=== PATIENT | male | born 1945 | race Caucasian/White ===

== ENCOUNTER → 2016-11-13 | Outpatient (CLI) | payer MEDICARE, OTHER ==
[~2016-11-13] MED LIST: ASPIRIN LO-DOSE81 MG PO; ASPIRIN325 MG PO; CPAP INH; PRINIVIL OR ZES10 MG PO; PROTONIX40 MG PO; RYTHMOL150 MG PO; ZOCOR20 MG PO
== END | disposition disaster alternative care site (69) ==
LOC: GRAD 16:00
DX: R05 Cough (principal); J98.11 Atelectasis; J98.4 Other disorders of lung; R06.09 Other forms of dyspnea

== ENCOUNTER → 2016-11-21 | Outpatient (CLI) | payer MEDICARE, OTHER ==
--- NOTE | ~2016-11-21 | PUL ---
PATIENT'S NAME: PORTILLO WARREN [facility] AGE: 70 Y [address] ROOM: [place] [id number] LOCATION: [facility] ADMIT DATE: 11/21/2016 Pulmonary DISCHARGE DATE: FAMILY PHYSICIAN: Jolynn Bruner MD ATTENDING PHYSICIAN: ALYSSA ORONA NAME OF PROCEDURE: Pulmonary Function Test DATE OF PROCEDURE: November 21, 2016 REASON FOR EXAM: Shortness of breath RESULTS: 1. FVC was 5.23 liters which is 110% of predicted and normal, FEV1 was 3.59 liters which is 101% of predicted and normal, and FEV1/FVC was 69% and normal for patient's demographics. After bronchodilator administration FVC decreased to 5.14 liters and FEV1 increased to 3.84 liters which is a 7% increase. FEV1/FVC was 75%. 2. DLCO was 22.1 with an adjusted DLCO of 22.4 which is 101% of predicted and normal. 3. Total lung capacity was 7.83 liters which is 112% of predicted and normal, and residual volume was 2.6 liters which is 98% of predicted and normal. PHYSICIAN INTERPRETATION: The patient has no airflow limitation and no significant bronchodilator response. His diffusion capacity is normal. There is no evidence of restrictive lung disease. ALYSSA ORONA MD RFN/ks /[id number] dtt: 11/22/16 1426 , ALYSSA ORONA dtd: 11/22/16 1309
== END | disposition disaster alternative care site (69) ==
LOC: GRTH 08:40
DX: R06.09 Other forms of dyspnea (principal)

== ENCOUNTER → 2016-12-26 | Outpatient (CLI) | payer MEDICARE, OTHER ==
--- NOTE | ~2016-12-26 | PUL ---
PATIENT'S NAME: KELVIN [facility] AGE: 71 Y [address] ROOM: [place] [id number] LOCATION: [facility] ADMIT DATE: 11/21/2016 Pulmonary DISCHARGE DATE: FAMILY PHYSICIAN: Jolynn Bruner MD ATTENDING PHYSICIAN: ALYSSA ORONA NAME OF PROCEDURE: Cardiopulmonary Exercise Testing DATE OF PROCEDURE: December 26, 2016 TECH: NAN Keller REASON FOR EXAM: Dyspnea on exertion RESULTS: The patient underwent a graded exercise testing using a cycle ergometer. The patient reached the maximum work rate of 156 dangelo, 109% of his predicted maximum work rate. This is a normal work capacity. The maximum oxygen consumption was 0.43 liters/minute, 21% of predicted maximum oxygen consumption, and this corresponds to 5.2 cm/kg per minute. This is a severe impairment of oxygen consumption. Maximum minute ventilation reached was 21.2 liters/minute, 17% of his measured maximum voluntary ventilation. This results in a ventilatory reserve of 100 liters/minute, which is normal. Respiratory rate reached was 37 beats per minute at maximum exercise. This indicates a normal ventilatory response to exercise. Heart rate reached 125 beats per minute at maximum exercise, 83% of predicted maximum heart rate. This indicates a heart rate reserve of 25 beats per minute. Oxygen pulse was 3.5 mL/beat, 19% predicted. This indicated a cardiac limitation to exercise. Exercise electrocardiogram feet did not show evidence of exertional ischemia. Anaerobic threshold occurred at on oxygen consumption of 0.32 L/minute, 16% of the predicted maximum oxygen consumption, which is reduced. Ventilatory balance for carbon dioxide, VE/VCO2 fell during exercise to a minimal level of 40 which is borderline elevated, may suggest mild VQ mismatch. VD/VT was 0.26 at rest and fell to 0.19 at peak exercise. Oxygen saturation did not decline with exercise. IMPRESSION: Work capacity is not impaired. There is no evidence of ventilatory limitation to exercise. There is evidence of cardiovascular limitation to exercise. Post exercise spirometry did not show any significant drop in FEV1, so there is no evidence of exercise induced bronchospasm. PATIENT'S NAME: KELVIN [facility] AGE: 71 Y [address] ROOM: [place] [id number] LOCATION: [facility] ADMIT DATE: 11/21/2016 Pulmonary DISCHARGE DATE: FAMILY PHYSICIAN: Jolynn Bruner MD ATTENDING PHYSICIAN: ALYSSA ORONA MD Alicia WILLINGHAM /[id number] dtt: 01/11/17 0909 NICOL MEENAKSHI dtd: 12/27/16 1101
== END | disposition disaster alternative care site (69) ==
LOC: GCAR 08:57 → GRAD 11:00
DX: R93.8 Abnormal findings on diagnostic imaging of other specified body structures (principal); R06.09 Other forms of dyspnea; Z87.01 Personal history of pneumonia (recurrent); J18.9 Pneumonia, unspecified organism; J98.4 Other disorders of lung